=== PATIENT | female | born 1935 | race Hispanic/Latino ===

== ENCOUNTER 2021-12-22 11:19 | Outpatient (CLI) | payer MEDICARE ==
--- NOTE | 2021-12-22 13:26 | Fluoroscopy Report ---
BARIUM SWALLOW Indication: R13.19 ESOPHAGEAL DYSPHAGIA. Technique: Single and double contrast barium technique utilized to evaluate the esophagus. FINDINGS: To begin the exam, swallowing was evaluated in the lateral position under direct fluorosco py. Swallowing was normal. No mucosal defect, mass or abnormal dilatation is present. There is however suggestion of mild smooth narrowing of the distal esophagus just before the GE junction. A barium tablet was administered whic h became stuck in the distal esophagus just above the GE junction in this region. This would not appe ar to pass into the stomach with both water and additional barium ingestion. This may represent a mil d stricture. Occasional tertiary contractions of the esophagus were witnessed throughout this exam with delayed em ptying. No evidence for hiatal hernia. No reflux was witnessed during this exam. IMPRESSION: 1. Mild smooth narrowing of the distal esophagus is suspected. A barium tablet was unable to transver se this area. 2. Mild esophageal dysmotility with delayed emptying of esophagus. 3. No evidence for esophageal mass. Fluoroscopic time: 6 minutes Number of fluoroscopic images: 78 Signer Name: Crispin Curry Jr, MD Signed: 12/22/2021 1:22 PM Workstation Name: [id number]
== END 2021-12-22 11:20 | disposition home or self-care (01) ==
LOC: FLUORO 11:19
DX: R13.19 Other dysphagia (principal)
CPT/HCPCS: 74220